=== PATIENT | male | born 1965 | race African-American/Black ===

== ENCOUNTER 2021-04-04 11:12 | Emergency (ER) | payer BC ==
[~2021-04-04] VITALS: Ht 182.9 cm; Wt 93.9 kg
[2021-04-04 11:51] LABS: URINE BILIRUBIN NEGATIVE (Negative); URINE BLOOD 1+ (Negative); URINE CLARITY CLEAR; URINE COLOR YELLOW; URINE GLUCOSE-RANDOM* NEGATIVE (Negative); URINE KETONES TRACE (Negative); URINE LEUKOCYTES-REFLEX NEGATIVE (Negative); URINE NITRITE-REFLEX NEGATIVE (Negative); URINE PROTEIN (DIPSTICK) TRACE (Negative); URINE SPECIFIC GRAVITY 1.025 (1.005-1.035)
[2021-04-04 12:08] LABS: BACTERIA-REFLEX None Seen /HPF (None Seen); CRYSTALS None Seen /LPF (None Seen); HYALINE CASTS 0-3 Few /LPF (None Seen); SQUAMOUS None Seen /LPF (0-3); URINE RBC 1-2 Rare /HPF (NONE SEEN); URINE WBC-REFLEX 0-5 Rare /HPF (0-5)
[2021-04-04 12:27] LABS: ABSOLUTE NEUTROPHILS 5.9 thou/uL (1.4-8.2); BASOPHILS 0.5 % (0.0-2.0); HEMATOCRIT 45.1 % (42.0-52.0); HEMOGLOBIN 15.1 gm/dL (14.0-18.0); LYMPHOCYTES 11.9 % (24.0-44.0); MCH 30.8 pg (26.0-34.0); MCHC 33.4 g/dL (28.0-37.0); MCV 92.2 fL (80.0-100.0); MONOCYTES 6.9 % (1.0-8.0); PLATELET COUNT 258 thou/uL (150-400); POLYS 79.7 % (36.0-66.0); RBC 4.89 mil/uL (4.50-6.00); RDW 13.6 % (10.5-14.5); WBC 7.4 thou/uL (4.0-11.0)
[2021-04-04 12:58] LABS: CALCIUM 9.2 mg/dL (8.5-10.1); CREATININE 1.6 mg/dL (0.7-1.3); POTASSIUM 4.3 mmol/L (3.5-5.1)
[2021-04-04 13:06] LABS: TOTAL BILIRUBIN 1.9 mg/dL (0.2-1.0); TOTAL PROTEIN 7.4 g/dL (6.4-8.2)
[2021-04-04] MEDS ORDERED: LEVSIN0.125 MG PO (14:44)
[2021-04-04] MEDS ORDERED: NORCO5 PO (14:44)
[2021-04-04 15:00] VITALS: BP 131/73
== END 2021-04-04 15:01 | disposition home or self-care (01) ==
LOC: ER 11:12
PROVIDERS: Physician Assistant
DX: N17.9 Acute kidney failure, unspecified (principal); R10.9 Unspecified abdominal pain; Z88.0 Allergy status to penicillin

== ENCOUNTER 2021-10-25 21:13 | Emergency (ER) | payer BC ==
[~2021-10-25] VITALS: Ht 182.9 cm; Wt 104.3 kg
[~2021-10-25 21:13] MED LIST: LEVSIN0.125 MG PO; NORCO5 PO
[2021-10-26] MEDS ORDERED: MELOXICAM15 MG PO (03:15)
[2021-10-26] MEDS ORDERED: ZPAK PO (03:15)
[2021-10-26 04:55] VITALS: BP 164/66
== END 2021-10-26 04:55 | disposition home or self-care (01) ==
LOC: ER 21:13
DX: U07.1 COVID-19 (principal); Z88.0 Allergy status to penicillin